=== PATIENT | female | born 1970 | race Caucasian/White ===

== ENCOUNTER 2020-07-05 08:31 | Emergency (ER) | payer BC, OTHER ==
[2020-07-05 09:06] LABS: #Eosinphils 0.1 thou/uL (0.0-0.7); #Monocytes 0.5 thou/uL (0.11-0.59); %Basophils 0.4 % (0.0-1.0); %Eosinophils 1.9 % (0.0-10.0); %Lymphocytes 25.8 % (21.0-51.0); %Monocytes 6.2 % (0.0-10.0); %Neutrophils 65.7 % (42.0-75.0); Hemoglobin 15.5 g/dL (12.0-16.0); Mean Corpuscular HGB CONC 32.2 g/dL (32.0-36.0); Mean Corpuscular Hemoglobin 32.3 pg (27.0-31.0); Mean Platelet Volume 6.9 fL (7.4-10.4); Platelet Count 251 thou/uL (130-400); RBC Distribution Width 11.3 % (11.5-14.5); Red Blood Cell (RBC) Count 4.79 mill/uL (4.20-5.40); White Blood Cell (WBC) Count 7.6 thou/uL (4.8-10.8)
[2020-07-05 09:32] LABS: ALT (SGPT) 19 U/L (8-55); AST (SGOT) 16 U/L (5-34); Acetaminophen Less than 6.0 mcg/mL (10.0-30.0); Albumin 4.3 g/dL (3.5-5.0); Alcohol Less than 10 mg/dL (Less than 10); Alkaline Phosphatase 61 U/L (40-110); Anion Gap 12 mmol/L (10-20); BUN (Urea Nitrogen) 27 mg/dL (9.8-20.1); Bilirubin, Total 0.2 mg/dL (0.2-1.2); Calc. Creatinine Clearance 0 mL/min (70-130); Calcium 9.4 mg/dL (7.8-10.44); Carbon Dioxide 27 mmol/L (22-29); Chloride 105 mmol/L (98-107); Globulin 3.2 g/dL (2.4-3.5); Glucose 113 mg/dL (70-105); Potassium 3.7 mmol/L (3.5-5.1); Protein, Total 7.5 g/dL (6.0-8.3); Salicylate Less than 8.0 mg/dL (15.0-30.0); Sodium 140 mmol/L (136-145)
[2020-07-05 10:05] LABS: Bilirubin Negative (Negative); Blood, Urine Negative (Negative); Clarity Clear (Clear); Glucose, Urine (Dipstick) Normal (Negative); Ketone, Urine Negative (Negative); Leukocyte Negative Leu/uL (Negative); Nitrite Negative (Negative); Protein, Urine (Dipstick) Negative (Neg-Trace); Specific Gravity, Urine 1.025 (1.002-1.036); Urobilinogen Normal mg/dL (Less than 2); pH, Urine 6.5 (5.0-9.0)
[2020-07-05 10:09] LABS: Pregnancy Test - Urine (BHCG) Negative (Negative); Pregu Control Background? CLEAR/WHITE (CLR/WHITE); Pregu Control Bar Appear? YES (CONTROL BAR); Specific Gravity 1.025 (1.002-1.036)
[2020-07-05 10:15] LABS: Amphetamine Not Detected (NotDetected); Barbiturates Screen Not Detected (NotDetected); Benzodiazepine Screen Not Detected (NotDetected); Cocaine Metabolite Screen Not Detected (NotDetected); Medtox Control Line Valid? VALID (VALID); Medtox Reader # READER 4; Methadone Not Detected (NotDetected); Methamphetamine Not Detected (NotDetected); Opiate Screen Not Detected (NotDetected); Oxycodone Screen Not Detected (NotDetected); Phencyclidine (PCP) Not Detected (NotDetected); THC/Cannabinoid Screen Not Detected (NotDetected); Tricyclic Screen Not Detected (NotDetected)
[2020-07-05] MEDS ORDERED: Midazolam HCl 2 mg/2 ml Vial ONE (13:30)
[2020-07-05] MEDS ORDERED: Ziprasidone 20 MG VIAL ONE (13:30)
[2020-07-05] MEDS ORDERED: Sterile Water 10 ML ONE (13:31)
[2020-07-05] MEDS ORDERED: Iopamidol-370 76% 500 ML 1 ML ONE (13:51)
--- NOTE | 2020-07-05 14:48 | CT ---
Exam: Head CT without contrast HISTORY: Altered mental status COMPARISON: none FINDINGS: Hemorrhage: No intraparenchymal hemorrhage or extra-axial hematoma. Brain parenchyma: Cortical trevino-white matter differentiation is preserved. No mass effect or midline shift. Basilar cisterns are patent. Ventricular system: Ventricles and sulci are patent and symmetric. Calvarium: Intact. Sinuses and mastoid air cells: Adequate aeration. IMPRESSION: No acute intracranial process.
--- NOTE | 2020-07-05 15:13 | CT ---
CT CHEST, ABDOMEN AND PELVIS WITH CONTRAST: 07/05/20 INDICATIONS: Mental status change. CT CHEST: The lungs show no confluent infiltrate or effusion. Hazy ground glass opacity with pleural based cyst ic changes in the posterior lungs bilaterally suggest chronic change possibly some mild atelectasis. Mediastinum unremarkable. Thyroid is mildly prominent and there are low density nodules in the left l obe of the thyroid measuring up to 1 cm. Osseous structures unremarkable. IMPRESSION: 1. Ground glass opacity with pleural based cystic changes in the posterior lungs is nonspecific. This does not have the appearance of acute infiltrate and is probably chronic change. 2. There is a low density nodules in the left lobe of the thyroid measuring up to 1 cm. 3. Otherwise no acute chest process. CT ABDOMEN AND PELVIS: Liver, spleen, and pancreas unremarkable. Post cholecystectomy change. Adrenal glands normal. Kidneys show a 1.8 cm cyst in the superior left kidney. Kidneys otherwise unremarkable with no hydronephrosi s or evidence of urinary calculus. Small bowel loops normal caliber. Colon unremarkable. Aorta normal caliber. Images through the pelvis show unremarkable uterus and adnexa. Urinary bladder unremarkable. No mass or adenopathy. osseous st ructures unremarkable. IMPRESSION: No acute abdominal process. POS: AH
--- NOTE | 2020-07-09 14:21 | EKG ---
Test Reason : Blood Pressure : / mmHG Vent. Rate : 075 BPM Atrial Rate : 075 BPM P-R Int : 148 ms QRS Dur : 084 ms QT Int : 408 ms P-R-T Axes : 078 070 062 degrees QTc Int : 455 ms Normal sinus rhythm Normal ECG Confirmed by VICK TOMPKINS DO ([id number]), non linear editor TIMUR LEO ([id number] on 07/09/2020 2:20:35 PM Referred By: Confirmed By:VICK TOMPKINS DO
== END 2020-07-05 17:26 ==
LOC: ERS 08:31
DX: R44.0 Auditory hallucinations (principal); I10 Essential (primary) hypertension; F17.210 Nicotine dependence, cigarettes, uncomplicated; Z79.1 Long term (current) use of non-steroidal anti-inflammatories (NSAID)
CPT/HCPCS: 36415; 70450; 71260; 74177; 80053; 80306; 80307; 81003; 81025; 84443; 85025; 93005; 94760; 96372; J2250; J3486; Q9967